=== PATIENT | female | born 1995 | race Caucasian/White ===

== ENCOUNTER → 2018-06-21 | Outpatient (CLI) | payer OTHER ==
[~2018-06-21] MED LIST: GADOBUTROL 10 MMOL/10 ML VIAL IV ONE
--- NOTE | 2018-06-21 09:44 | RAD ---
MR venogram head without contrast History: Worsening migraine headaches, optic nerve swelling, papilledema Technique: Noncontrast MR venography was performed of the head. Comparison: None Findings: Left transverse and sigmoid sinuses are smaller than the right likely on a developmental basis. Superior sagittal sinus is primarily drained by the right. Straight sinus is primarily drained by the left. Some areas of decreased signal in the right sigmoid sinus and jugular bulb may be due to flow artifact. No defined occlusive intraluminal filling defect is identified. Accurate evaluation for smaller nonocclusive filling defect is limited on this noncontrast exam. Superior sagittal sinus is patent. Impression: 1. No defined occlusive filling defect is identified of the venous sinuses. There are some areas of decreased signal in the right sigmoid sinus and internal jugular bulb although may be due to flow artifact on this noncontrast exam. Right transverse and sigmoid sinuses are dominant. Electronically signed by: Chris Hudson MD (06/21/2018 9:40 AM) [email or web address]
--- NOTE | 2018-06-21 10:29 | RAD ---
MRI Brain with and without contrast History: Worsening migraine headaches, papilledema, optic nerve swelling Technique: Multiplanar, multi sequential pre and postcontrast MR imaging was performed of the brain and orbits. Comparison: None Findings: There is no evidence of recent infarct or cytotoxic edema. The ventricles, sulci, and cisterns are within normal limits in size and configuration. There is no significant midline shift, intraaxial mass effect, or focal abnormal extra-axial fluid collection. There is no significant signal abnormality of the brain parenchyma. There is no nodular parenchymal or leptomeningeal enhancement. There is preservation of the major intracranial flow-voids at the skull base. The cerebellar tonsils are normal in location. There is no significant abnormality of the pineal gland or pituitary gland. There is 1.7 cm left maxillary sinus mucous retention cyst, small focus in the right about 1 cm. There is mild left greater than right maxillary sinus mucosal thickening, patchy very mild ethmoid air cell mucosal thickening. There is some increased CSF signal of the optic nerve sheaths bilaterally. Mastoid air cells are overall aerated, very mild thickening greater on the right. Low signal of the marrow of the nonexpanded clivus is probably due to residual red marrow. There is no asymmetric enhancement of the optic nerves. Extraocular muscles are symmetric in appearance. No intraorbital mass is identified. Impression: 1. There is some nonspecific increased CSF signal of the optic nerve sheaths bilaterally which can be associated with intracranial hypertension although no other significant imaging findings. 2. There are left greater than right maxillary sinus mucous retention cysts, minimal paranasal sinus mucosal thickening. Electronically signed by: Chris Hudson MD (06/21/2018 10:26 AM) [id number]
== END | disposition home or self-care (01) ==
LOC: MRI 07:36
PROVIDERS: ATTEND Optometrist
DX: H47.333 Pseudopapilledema of optic disc, bilateral (principal); J34.1 Cyst and mucocele of nose and nasal sinus
CPT/HCPCS: 70544; 70553; A9585

== ENCOUNTER 2018-07-19 08:18 | Outpatient (CLI) | payer OTHER ==
[2018-07-19 09:45] VITALS: BP 122/63
[2018-07-19 10:48] LABS: CSF CLARITY CLEAR; CSF COLOR COLORLESS; CSF RBC COUNT 0 /cmm (Not Established); CSF WBC COUNT 0 /cmm (Not Established)
[2018-07-19 10:50] VITALS: BP 137/80
[2018-07-19 10:51] LABS: CSF PROTEIN 18.7 mg/dL (15.0-45.0)
[2018-07-19 11:50] VITALS: BP 101/63
--- NOTE | 2018-07-19 12:25 | RAD ---
Fluoroscopically guided lumbar puncture, 07/19/2018: History: Chronic headaches Under local anesthesia, aseptic conditions and fluoroscopic guidance a lumbar puncture was performed at the L2-3 level utilizing a 20-gauge spinal needle. Good clear CSF flow was obtained. The opening pressure was 24 cm of water. A total of 10 cc of CSF was removed and sent to lab for appropriate studies. The closing pressure was 17 cm of water. 1.0 minute of fluoroscopy time was utilized. One fluoroscopic spot image was recorded. The patient tolerated the procedure well and left the department in good condition.
[2018-07-19 12:26] VITALS: BP 118/70
--- NOTE | 2018-07-19 12:27 | NUR ---
Discharge Note: WALTER RAMOS Discharge instructions and discharge home medications reviewed with Patient and a copy given. All questions have been answered and understanding verbalized. The following instructions and handouts were given: LP post care info. Discontinued lines and drains: none to remove. Patient discharged to Home or Self Care withFamily Membervia Ambulated
== END 2018-07-19 12:34 | disposition home or self-care (01) ==
LOC: RAD 08:18
PROVIDERS: ATTEND Psychiatry & Neurology Neurology
DX: G43.909 Migraine, unspecified, not intractable, without status migrainosus (principal); Z87.891 Personal history of nicotine dependence
CPT/HCPCS: 36415; 62270; 77003; 82945; 84157; 89051

== ENCOUNTER → 2018-11-06 | Outpatient (CLI) | payer OTHER ==
[~2018-11-06] MED LIST changes: -GADOBUTROL 10 MMOL/10 ML VIAL IV ONE; +IBUP200T44 PO
== END | disposition home or self-care (01) ==
LOC: LAB 09:34
PROVIDERS: ATTEND Obstetrics & Gynecology
DX: O02.0 Blighted ovum and nonhydatidiform mole (principal)
CPT/HCPCS: 36415; 84144; 84702

== ENCOUNTER 2018-11-07 07:18 | Day surgery (SDC) | payer OTHER ==
[~2018-11-07] VITALS: Ht 165.1 cm; Wt 92.0 kg
[~2018-11-07 07:18] MED LIST changes: -IBUP200T44 PO; +ceFAZolin 2GM PREMIX 2 GM/50 ML BAG IV ONE
[2018-11-07 08:03] LABS: BASO % 0 % (0-3); EOS % 1 % (0-3); HEMATOCRIT 40.7 % (36.0-47.0); HEMOGLOBIN 13.8 g/dL (12.0-15.5); LYMPH # 1.8 x10^3/uL (1.0-4.8); LYMPH % 21 % (24-48); MEAN CORPUSCULAR HEMOGLOBIN 29 pg (25-35); MEAN CORPUSCULAR HGB CONC 34 g/dL (31-37); MEAN CORPUSCULAR VOLUME 86 fL (79-100); MONO # 0.5 x10^3/uL (0.0-1.1); MONO % 6 % (0-9); NEUT # 6.1 x10^3/uL (1.8-7.7); NEUT % 72 % (31-73); PLATELET COUNT 212 x10^3/uL (140-400); RED BLOOD COUNT 4.73 x10^6/uL (3.50-5.40); RED CELL DISTRIBUTION WIDTH 13.3 % (11.5-14.5); WHITE BLOOD COUNT 8.5 x10^3/uL (4.0-11.0)
[2018-11-07] MEDS ORDERED: ONDANSETRON PF 4 MG/2 ML VIAL. ONE (08:11)
[2018-11-07] MEDS ORDERED: LIDOCAINE 2% PF 5 ML VIAL. ONE (08:11)
[2018-11-07] MEDS ORDERED: PROPOFOL 20 ML IV ONE (08:11)
[2018-11-07] MEDS ORDERED: KETOROLAC 30 MG/ML INJ FOR OR. INJ ONE (08:11)
[2018-11-07] MEDS ORDERED: DEXAMETHASONE SOD PHOS 4 MG/ML VIAL ONE (08:11)
[2018-11-07] MEDS ORDERED: fentaNYL PF VIAL 100 MCG/2 ML VIAL ONE (08:11)
[2018-11-07] MEDS ORDERED: MIDAZOLAM HCL/PF 2 MG/2 ML VIAL. ONE (08:11)
[2018-11-07] MEDS ORDERED: IV RINGERS,LACTATED 1000ML 1,000 ML IV SCH (08:31)
[2018-11-07] MEDS ORDERED: LIDOCAINE 1% PF 2 ML VIAL. ID PRN (08:45)
[2018-11-07] MEDS ORDERED: fentaNYL PF VIAL 100 MCG/2 ML VIAL IV PRN ×2 (08:45)
[2018-11-07] MEDS ORDERED: MIDAZOLAM HCL/PF 2 MG/2 ML VIAL. IV PRN (08:45)
[2018-11-07] MEDS ORDERED: OXYTOCIN 10 UNIT/ML VIAL. ONE ×2 (08:55→09:02)
[2018-11-07] MEDS ORDERED: VASOPRESSIN 20 UNIT/ML VIAL. ONE (09:02)
[2018-11-07] MEDS ORDERED: SEVOFLURANE 31 TO 60 MINUTES. IH ONE (09:27)
[2018-11-07] MEDS ORDERED: SEVOFLURANE 16 TO 30 MINUTES. IH ONE (09:33)
--- NOTE | 2018-11-07 09:35 | PDOC ---
BRIEF OPERATIVE NOTE Date: Nov 07, 2018 Pre-Op Diagnosis Blighted Ovum Post-Op Diagnosis Same Procedure Performed Suction D&C Surgeon Dr. Sharp Anesthesia Type: General Blood Loss 75 ml Specimens Obtained POC Findings POC Complications none Operative Note see dictation FREDERICK SHARP Jr, MD Nov 07, 2018 09:35
--- NOTE | 2018-11-07 09:36 | DISCH ---
DISCHARGE INSTRUCTIONS Condition on Discharge Condition on Discharge: Stable Activity After Discharge Activity Instructions for Disc: Activity as tolerated Lifting Instructions after Dis: No heavy lifting Driving Instructions after Dis: Do not drive today Diet after Discharge Diet after Discharge: Regular Contacting the DRPayal after DC Call your doctor for: Concerns you may have Follow-Up Follow up with: Dr. Perkins in 1 week. FREDERICK PERKINS Jr, MD Nov 07, 2018 09:36
[2018-11-07] MEDS ORDERED: IBUP200T44 PO (09:42)
[2018-11-07] MEDS ORDERED: IBUPROFEN 200 MG TABLET. PO ONE (09:45)
--- NOTE | 2018-11-07 09:47 | OP ---
DATE OF SURGERY: PREOPERATIVE DIAGNOSIS: Blighted ovum. POSTOPERATIVE DIAGNOSIS: Blighted ovum. PROCEDURE: Suction D and C. SURGEON: Sourav Sharp MD ANESTHESIA: GETA. ESTIMATED BLOOD LOSS: 75 mL. COMPLICATIONS: None. FINDINGS: Products of conception. SUMMARY: A 23-year-old 2, A1 at 7 weeks with blighted ovum diagnosed in clinic. The patient was counseled on risks, benefits and expectations of suction D and C and voiced clear understanding to proceed. DESCRIPTION OF PROCEDURE: The patient was taken to surgery suite and placed in dorsal lithotomy position. She was prepped with Betadine solution and draped in sterile fashion. After adequate anesthesia, weighted speculum and curved Starr placed vaginally and anterior lip of the cervix was grasped with single tooth tenaculum. Cervix was dilated with Hegar dilators up to size 8. The 8 mm curved tip suction curette was then passed removing products of conception and blood products. Sharp curettage took place until a fine gritty surface, was palpated circumferentially. Suction curette was passed once again removing additional blood products and products of conception. Single tooth tenaculum and weighted speculum were removed. The uterus palpated firm. Cervix was hemostatic. The patient tolerated the procedure well and was taken to recovery room in stable condition. Sponge and needle count correct x 3. SOURAV SHARP MD DR: MELANI/ramon JOB#: [id number] / [id number]
[2018-11-07 10:40] VITALS: BP 102/61
--- NOTE | 2018-11-11 17:06 | PATHOLOGY ---
[facility] Accession Number: [id number] . 01 Material submitted: . product of conception - PRODUCTS OF CONCEPTION . 01 Clinical history: . Missed . 02 Diagnosis: Uterine contents, suction D and C: - Products of conception, comprised of immature chorionic villi showing focal mild hydropic degenerative changes, and segments of decidual tissue showing focal hemorrhage, necrosis, and acute inflammation. (JPM:marisa; 11/11/2018) QMS/11/11/2018 . 02 Electronically signed: . Emmanuel Curtis MD, Pathologist NPI- [id number] . 01 Gross description: . The specimen is received in formalin, labeled "Hawkins, Bambi, products of conception", consists of a stockinet bag containing are multiple irregular fragments of hemorrhagic and ward-pink membranous soft tissues measuring 6.2 x 5.0 x 1.0 cm in aggregate. Spongy placental tissue is identified, but no discrete parts or grape-like cystic structures are present. Representatively submitted in A1-A3. ([facility]; 11/07/2018) [facility] . 02 Pathologist provided ICD-10: O02.89 . 02 CPT . 603790 Specimen Comment: A courtesy copy of this report has been sent to Specimen Comment: [phone], . Specimen Comment: Report sent to / DR VINES Performed at: 01 [facility] [address], [place] [id number] MD Oscar Ordaz MD Phone: [phone] Performed at: 02 [facility] [address], [place] [id number] MD Emmanuel Curtis MD Phone: [phone]
== END 2018-11-07 11:00 | disposition home or self-care (01) ==
LOC: SURG 07:18
PROVIDERS: ATTEND Obstetrics & Gynecology
DX: O02.0 Blighted ovum and nonhydatidiform mole (principal); Z3A.01 Less than 8 weeks gestation of pregnancy
CPT/HCPCS: 36415; 59812; 85025; A7015; J1100; J1885; J2001; J2250; J2405; J2590; J2704; J3010; J0696; J3490